=== PATIENT | male | born 1995 | race Caucasian/White ===

== ENCOUNTER → 2019-07-27 | Day surgery (SDC) | payer OTHER ==
[~2019-07-27] MED LIST: ACETAMINOPHEN/CODEINE 300MG - 30MG TAB ONE; BUPIVACAINE HCL 0.5% INJ 30 ML VIAL INJ ONE; CEFAZOLIN SOD 1 GM/NS 50ML 50 ML IV ONE; DEXAMETHASONE SOD PHOS INJ 4 MG/ML VIAL ONE; FENTANYL CITRATE/PF 100MCG/2 ML INJ ONE; HYDROMORPHONE 2MG/ML 2 MG/ML ML ONE; LIDOCAINE HCL 2% LOCAL INJ 5 ML SDV VIAL INJ ONE; MIDAZOLAM HCL 2 MG/2 ML VIAL ONE; MOTRIN200 MG PO; MUPIROCIN 2% OINT 22 GM TUBE ONE; ONDANSETRON HCL INJ 2MG/ML 2ML 2 MG/ML VIAL ONE; PROPOFOL IV EMULSION 10 MG/ML 20 ML VIAL ONE; SEVOFLURANE INHAL SOLN 250 ML PEN BTL ONE
--- OUTSIDE RECORDS SUMMARY | 2019-07-27 07:02 | XMS REPORT ---
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 Allergies, Adverse Reactions, Alerts Allergy Name Allergy Type Status Severity Reaction(s) Onset Date Inactive Date Treating Clinician Comments No Known Allergies DA Active U 2017-10-23 00:00:00 Medications This patient has no known medications. Results Test Description Test Time Test Comments Text Results Atomic Results Result Comments - XR HAND 3 + V RT 2019-07-21 18:32:00 Name: RICHIE DWYER [facility] : 1995 Age/S:23 /M [address] [facility] Unit#:[id number] Loc: [place] [address] Phys: Lalo Rubio MD Dis Date: PHONE #: [phone] Status: REG ER FAX #: [phone] Exam Date: 07/21/2019 Reason: pain, trauma EXAMS: CPT CODE: [id number] XR HAND 3 + [place] [id number] HISTORY: Pain after trauma. COMPARISON: Hand x-ray from October 23, 2017. Location: [facility]. 3 views of the right hand and wrist: Acute traumatic transverse fracture of the distal end of the 3rd metacarpal bone. Mild radial displacement. Soft tissue swelling. Joint spaces are preserved. The wrist joint is preserved. Carpal arcs are preserved. No AVN of the lunate or the scaphoid bones. IMPRESSION: Acute traumatic transverse fracture of the distal end of the 3rd metacarpal bone with mild radial displacement and mild soft tissue swelling. at 1832 Reported and signed by: Guero Salvador M.D. CC: Lalo Rubio MD Technologist: MIREYA VIEYRA, RT(R),CT Trnscrpt Data: 07/21/2019 (1831) [email or web address] Orig Print D/T: S: 07/21/2019 (1835) PAGE 1 Signed Report - XR WRIST 3 + V RT 2019-07-21 18:32:00 Name: RICHIE DWYER [facility] : 1995 Age/S:23 /M [address] [facility] Unit#:[id number] Loc: [place] [address] Phys: Lalo Rbuio MD Dis Date: PHONE #: [phone] Status: REG ER FAX #: [phone] Exam Date: 07/21/2019 Reason: pain, trauma EXAMS: CPT CODE: [id number] XR WRIST 3 + V RT [id number] HISTORY: Pain after trauma. COMPARISON: Hand x-ray from October 23, 2017. Location: [facility]. 3 views of the right hand and wrist: Acute traumatic transverse fracture of the distal end of the 3rd metacarpal bone. Mild radial displacement. Soft tissue swelling. Joint spaces are preserved. The wrist joint is preserved. Carpal arcs are preserved. No AVN of the lunate or the scaphoid bones.
[2019-07-27 12:52] VITALS: BP 125/79
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
== END | disposition home or self-care (01) ==
LOC: OR 06:59
PROVIDERS: ATTEND Plastic Surgery
DX: S62.332A Displaced fracture of neck of third metacarpal bone, right hand, initial encounter for closed fracture (principal); Y04.0XXA Assault by unarmed brawl or fight, initial encounter; F17.210 Nicotine dependence, cigarettes, uncomplicated
CPT/HCPCS: 26608; C1713; J0690; J1100; J1170; J2001; J2250; J2405; J2704; J3010